=== PATIENT | male | born 1945 | race Hispanic/Latino ===

== ENCOUNTER 2017-08-01 23:40 | Emergency (ER) | payer MEDICARE, MEDICAID ==
[2017-08-01 23:43] VITALS: BMI 24.3
[2017-08-02] MEDS ORDERED: Lidocaine 1% Inj (20ml) ONE (00:45)
[2017-08-02] MEDS ORDERED: TDAP Vaccine 0.5 mL Syr IM ONE (01:03)
--- NOTE | 2017-08-02 01:04 | ED PDOC ---
Arrival/HPI <BernadetteColt - Last Filed: 08/02/17 04:28> - General Historian: Patient - History of Present Illness Time/Duration: Prior to Arrival Context: Home <Milad Rendon - Last Filed: 08/05/17 12:12> - General Chief Complaint: Trauma Time Seen by Provider: 08/02/17 01:03 - History of Present Illness Narrative History of Present Illness (Text): 08/02/17 01:04 This 72 yo male presents to this ED c/o left forehead laceration x [employer]. Patient stated he tripped and feel down forward. He said he hit forehead against corner of night table. Denies LOC (Milad Rendon) Past Medical History - Provider Review Nursing Documentation Reviewed: Yes - Infectious Disease Hx of Infectious Diseases: None - Cardiac Hx Hypertension: Yes - Hematological/Oncological Hx Anemia: Yes Hx Blood Transfusions: Yes - Psychiatric Hx Anxiety: Yes Hx Substance Use: No - Anesthesia Hx Anesthesia: Yes <Milad Rendon - Last Filed: 08/05/17 12:12> Family/Social History - Physician Review Nursing Documentation Reviewed: Yes Family/Social History: Other (noncontributory) Smoking Status: Former Smoker Hx Alcohol Use: (in the past stopped in 1989) Hx Substance Use: No <Milad Rendon - Last Filed: 08/05/17 12:12> Allergies/Home Meds <PacogómezColt - Last Filed: 08/02/17 04:28> <Milad Rendon - Last Filed: 08/05/17 12:12> Allergies/Adverse Reactions: Allergies risperidone [From Risperdal] Allergy (Verified 08/01/17 23:44) DIZZINESS Home Medications: Home Meds Medication Instructions Recorded Confirmed Levocetirizine Dihydrochloride 5 mg PO DAILY 08/02/17 08/02/17 [Xyzal] Lisinopril [Zestril] 40 mg PO DAILY 08/02/17 08/02/17 OLANZapine [Zyprexa Zydis] 10 mg PO DAILY 08/02/17 08/02/17 Temazepam [Restoril] 15 mg PO HS 08/02/17 08/02/17 Verapamil [Verapamil HCl] 180 mg PO DAILY 08/02/17 08/02/17 Review of Systems - Review of Systems Constitutional: Normal. absent: Fatigue, Weight Change, Fevers Eyes: Normal ENT: Normal Respiratory: Normal Cardiovascular: Normal Gastrointestinal: Normal Genitourinary Male: Normal Musculoskeletal: Normal Skin: Normal, Laceration Endocrine: Normal Hemo/Lymphatic: Normal Psychiatric: Normal <Milad Rendon - Last Filed: 08/05/17 12:12> Physical Exam Temperature: Afebrile Blood Pressure: Normal Pulse: Regular Respiratory Rate: Normal Appearance: Positive for: Well-Appearing, Non-Toxic, Comfortable Pain Distress: None Mental Status: Positive for: Alert and Oriented X 3 - Systems Exam Head: Present: Atraumatic, Normocephalic, Laceration ((+) 6 mm stellar laceration, with active bleeding), Other (no racoon sign. No muñoz sign) Pupils: Present: PERRL, Other (no hyphema) Extroacular Muscles: Present: EOMI. No: Entrapment Conjunctiva: Present: Normal Ears: Present: Normal, NORMAL TM, Other (no hemotymapnum) Mouth: Present: Moist Mucous Membranes Nose (External): Present: Atraumatic Nose (Internal): Present: Normal Inspection. No: Septal Hematoma Neck: Present: Normal Range of Motion. No: Meningeal Signs, MIDLINE TENDERNESS , Paraspinal Tenderness Respiratory/Chest: Present: Clear to Auscultation, Good Air Exchange. No: Respiratory Distress, Accessory Muscle Use, Wheezes Cardiovascular: Present: Regular Rate and Rhythm, Normal S1, S2. No: Murmurs Upper Extremity: Present: Normal Inspection, Normal ROM Lower Extremity: Present: Normal Inspection, Normal ROM Neurological: Present: GCS=15, CN II-XII Intact, Speech Normal, Motor Func Grossly Intact, Normal Sensory Function, Normal Cerebellar Funct, Memory Normal Skin: Present: Warm, Dry, Normal Color. No: Rashes Psychiatric: Present: Alert, Oriented x 3, Normal Insight <RendonLindamatt Guerrero - Last Filed: 08/05/17 12:12> Vital Signs Temp Pulse Resp BP Pulse Ox 08/02/17 00:35 98.1 F 82 20 133/85 97 Medical Decision Making - RAD Interpretation Urban Designer: Radiologist <Colt Fleming - Last Filed: 08/02/17 04:28> ED Course and Treatment: 08/02/17 04:28 CT Head shows: Brain: Iztb-zo-qeiveubn atrophy. No intracranial hemorrhage. No mass. Few scattered foci of decreased attenuation within periventricular/subcortical white matter. No edema. Ventricles: No hydrocephalus. Bones/joints: No acute fracture. Soft tissues: Mild scalp swelling. Vasculature: Mild atherosclerotic disease of intracranial arteries. Sinuses: Rrsx-ki-zaevguvn mucosal thickening of RIGHT maxillary sinus. Scattered minimal to mild mucosal thickening of remaining sinuses. Air-fluid level within RIGHT maxillary sinus. Mastoid air cells: No mastoid effusion. Orbits: Unremarkable as visualized. IMPRESSION: 1. No intracranial hemorrhage. 2. Nonspecific white matter changes. 3. Sinus disease. 4. Incidental/non-acute findings are described above. CT Cervical Spine shows: Limitations: Suboptimal positioning. Vertebrae: No acute fracture. Curvature of spine. Facet osteoarthrosis. Discs/spinal canal/neural foramina: Moderate degenerative disc disease within mid and lower cervical spine. Mild indentation thecal sac/cord mid cervical spine. Neuroforaminal narrowing with mid and lower cervical spine. Soft tissues: Unremarkable. Sinuses: Scattered mucosal thickening of visualized sinuses. Fluid within right maxillary sinus. Lung apices: Unremarkable as visualized. IMPRESSION: 1. No fracture. 2. Incidental/non-acute findings are described above. (Colt Fleming) - RAD Interpretation Radiology Orders: 08/02/17 01:03 HEAD W/O CONTRAST [CT] Stat 08/02/17 01:19 CERVICAL SPINE W/O CONTRAST [CT] Stat - Medication Orders Current Medication Orders: Discontinued Medications Tetanus/Reduced Diphtheria/Acell Pertussis (Boostrix Vaccine Inj) 0.5 ml IM .ONCE ONE Stop: 08/02/17 01:04 Last Admin: 08/02/17 02:12 Dose: 0.5 ml Disposition/Present on Arrival <Colt Fleming - Last Filed: 08/02/17 04:28> - Present on Arrival Any Indicators Present on Arrival: No History of DVT/PE: No History of Uncontrolled Diabetes: No Urinary Catheter: No History of Decub. Ulcer: No History Surgical Site Infection Following: None - Disposition Have Diagnosis and Disposition been Completed?: Yes Disposition Time: 02:30 Patient Plan: Discharge <Milad Rendon - Last Filed: 08/05/17 12:12> - Disposition Diagnosis: Laceration of forehead Disposition: HOME/ ROUTINE Condition: IMPROVED Discharge Instructions (ExitCare): Laceration Repair, Laceration Repair With Stitches (DC) Additional Instructions: suture removal in 7 days Referrals: León Olguin MD [Primary Care Provider] - Follow up with primary Forms: [employer] (Bel[place]ian)
[2017-08-02 03:59] VITALS: BP 133/85; PULSE 82; RESP 20; O2SAT 97
[2017-08-02 04:00] VITALS: TEMP 98.1
--- NOTE | 2017-08-02 04:20 | CT ---
EXAM: CT Head Without Intravenous Contrast CLINICAL HISTORY: 72 years old, male; Injury or trauma; Fall; Initial encounter; Concussion / head injury; Additional info: Trauma C/O RODRIGUEZ TECHNIQUE: Axial computed tomography images of the head/brain without intravenous contrast. All CT scans at this facility use one or more dose reduction techniques, viz.: automated exposure control; ma/kV adjustment per patient size (including targeted exams where dose is matched to indication; i.e. head); or iterative reconstruction technique. Sagittal reformatted images were created and reviewed. COMPARISON: Limitations: Suboptimal positioning. FINDINGS: Brain: Myor-dr-qfdyqkwz atrophy. No intracranial hemorrhage. No mass. Few scattered foci of decreased attenuation within periventricular/subcortical white matter. No edema. Ventricles: No hydrocephalus. Bones/joints: No acute fracture. Soft tissues: Mild scalp swelling. Vasculature: Mild atherosclerotic disease of intracranial arteries. Sinuses: Vjcx-bj-amasswmy mucosal thickening of RIGHT maxillary sinus. Scattered minimal to mild mucosal thickening of remaining sinuses. Air-fluid level within RIGHT maxillary sinus. Mastoid air cells: No mastoid effusion. Orbits: Unremarkable as visualized. IMPRESSION: 1. No intracranial hemorrhage. 2. Nonspecific white matter changes. 3. Sinus disease. 4. Incidental/non-acute findings are described above.
--- NOTE | 2017-08-02 04:25 | CT ---
EXAM: CT Cervical Spine Without Intravenous Contrast CLINICAL HISTORY: 72 years old, male; Injury or trauma; Fall; Initial encounter; Concussion /head injury; Additional info: Pain S/P fall TECHNIQUE: Axial computed tomography images of the cervical spine without intravenous contrast. All CT scans at this facility use one or more dose reduction techniques, viz.: automated exposure control; ma/kV adjustment per patient size (including targeted exams where dose is matched to indication; i.e. head); or iterative reconstruction technique. Coronal and sagittal reformatted images were created and reviewed. COMPARISON: No relevant prior studies available. FINDINGS: Limitations: Suboptimal positioning. Vertebrae: No acute fracture. Curvature of spine. Facet osteoarthrosis. Discs/spinal canal/neural foramina: Moderate degenerative disc disease within mid and lower cervical spine. Mild indentation thecal sac/cord mid cervical spine. Neuroforaminal narrowing with mid and lower cervical spine. Soft tissues: Unremarkable. Sinuses: Scattered mucosal thickening of visualized sinuses. Fluid within right maxillary sinus. Lung apices: Unremarkable as visualized. IMPRESSION: 1. No fracture. 2. Incidental/non-acute findings are described above.
== END 2017-08-02 05:09 | disposition home or self-care (01) ==
LOC: ED 23:40 → MERGE 23:40 → ED 08-02 05:09
DX: S01.81XA Laceration without foreign body of other part of head, initial encounter (principal); W01.190A Fall on same level from slipping, tripping and stumbling with subsequent striking against furniture, initial encounter; Y92.009 Unspecified place in unspecified non-institutional (private) residence as the place of occurrence of the external cause; Z23 Encounter for immunization